=== PATIENT | female | born 1960 | race Caucasian/White ===

== ENCOUNTER → 2016-09-21 | Outpatient (CLI) | payer OTHER ==
--- NOTE | 2016-09-21 13:15 | US ---
EXAMINATION TYPE: US venous doppler duplex LE RT DATE OF EXAM: 09/21/2016 12:47 PM COMPARISON: NONE CLINICAL HISTORY: Bilateral lower leg swelling > 1 year; bilateral lower leg varicose veins; prior PE per patient HX ~ 9 years ago. SIDE PERFORMED: bilateral VESSELS IMAGED: Common Femoral Vein Deep Femoral Vein Greater Saphenous Vein * Femoral Vein Popliteal Vein Small Saphenous Vein * Proximal Calf Veins (* superficial vessels) Grayscale, color Doppler, spectral Doppler imaging performed of the deep veins of the lower extremiti es. There is normal compressibility, no abnormal luminal echoes, there is normal color flow Right Leg: Negative for DVT Left Leg: Negative for DVT IMPRESSION: No evident deep venous thrombosis
== END ==
LOC: RADUSWWP 11:59
PROVIDERS: ATTEND Family Medicine
DX: R22.43 Localized swelling, mass and lump, lower limb, bilateral (principal)
CPT/HCPCS: 93965; 93970

== ENCOUNTER → 2016-12-28 | Outpatient (CLI) | payer OTHER ==
--- NOTE | 2016-12-28 12:50 | MM ---
Reason for exam: screening (asymptomatic). Last mammogram was performed 2 years and 9 months ago. History: Patient is postmenopausal. Family history of premenopausal breast cancer in maternal grandmother at age 45. Cancelled Right US Needle Biopsy of the right breast, March 13, 2007. Took hormonal contraceptives for 16 years 7 months beginning at age 16. Physical Findings: A clinical breast exam by your physician is recommended on an annual basis and results should be correlated with mammographic findings. MG Screening Mammo w CAD Bilateral CC and MLO view(s) were taken. Prior study comparison: April 02, 2014, bilateral MG screening mammo w CAD. February 18, 2013, bilateral digital screening mammo w/CAD. There are scattered fibroglandular densities. Finding: There are typically benign round calcifications in both breasts. There is a chronic nodularity in the left breast. There is no discrete abnormality. ASSESSMENT: Benign, BI-RAD 2 RECOMMENDATION: Routine screening mammogram of both breasts in 1 year.
== END | disposition home or self-care (01) ==
LOC: RADMAMWWP 08:43
PROVIDERS: ATTEND Family Medicine
DX: Z12.31 Encounter for screening mammogram for malignant neoplasm of breast (principal)

== ENCOUNTER → 2019-08-16 | Outpatient (CLI) | payer OTHER ==
--- NOTE | 2019-08-19 11:37 | MM ---
Reason for exam: screening (asymptomatic). Last mammogram was performed 2 years and 8 months ago. History: Patient is postmenopausal. Family history of premenopausal breast cancer in maternal grandmother at age 45. Cancelled Right US Needle Biopsy of the right breast, March 13, 2007. Took hormonal contraceptives for 16 years 7 months beginning at age 16. Physical Findings: A clinical breast exam by your physician is recommended on an annual basis and results should be correlated with mammographic findings. MG Screening Mammo w CAD Bilateral CC and MLO view(s) were taken. Prior study comparison: December 28, 2016, bilateral MG screening mammo w CAD. April 02, 2014, bilateral MG screening mammo w CAD. The breast tissue is heterogeneously dense. This may lower the sensitivity of mammography. Benign appearing bilateral calcifications. No suspicious abnormality. No significant changes when compared with prior studies. ASSESSMENT: Benign, BI-RAD 2 RECOMMENDATION: Routine screening mammogram of both breasts in 1 year.
== END | disposition home or self-care (01) ==
LOC: RADMAMWWP 09:53
PROVIDERS: ATTEND Family Medicine
DX: Z12.31 Encounter for screening mammogram for malignant neoplasm of breast (principal); Z80.3 Family history of malignant neoplasm of breast
CPT/HCPCS: 77067

== ENCOUNTER → 2020-11-20 | Outpatient (CLI) | payer OTHER ==
--- NOTE | 2020-11-23 11:37 | MM ---
Reason for exam: screening (asymptomatic). Last mammogram was performed 1 year and 3 months ago. History: Patient is postmenopausal. Family history of premenopausal breast cancer in maternal grandmother at age 45. Cancelled Right US Needle Biopsy of the right breast, March 13, 2007. Took hormonal contraceptives for 16 years 7 months beginning at age 16. Physical Findings: A clinical breast exam by your physician is recommended on an annual basis and results should be correlated with mammographic findings. MG Screening Mammo w CAD Bilateral CC and MLO view(s) were taken. Prior study comparison: August 16, 2019, bilateral MG screening mammo w CAD. December 28, 2016, bilateral MG screening mammo w CAD. There are scattered fibroglandular densities. There is chronic nodularity bilaterally. Area of asymmetric dentiy are unchanged. No significant changes when compared with prior studies. ASSESSMENT: Benign, BI-RAD 2 RECOMMENDATION: Routine screening mammogram of both breasts in 1 year.
== END | disposition home or self-care (01) ==
LOC: RADMAMWWP 07:47
PROVIDERS: ATTEND Family Medicine
DX: Z12.31 Encounter for screening mammogram for malignant neoplasm of breast (principal)
CPT/HCPCS: 77067

== ENCOUNTER → 2022-02-18 | Outpatient (CLI) | payer OTHER ==
--- NOTE | 2022-02-21 08:50 | MM ---
Reason for Exam: Screening (asymptomatic). Last mammogram was performed 1 year(s) and 3 month(s) ago. Patient History: Menarche at age 14. First Full-Term at age 25. Postmenopausal. Hormonal Contraceptives for 16 years, 7 months, from age 16 until age 49. 03/13/2007, Cancelled Right US Needle Biopsy on the right side. Maternal grandmother had breast cancer, age 45. Risk Values: Shahla 5 year model risk: 1.3%. NCI Lifetime model risk: 6.6%. Prior Study Comparison: 12/28/2016 Bilateral Screening Mammogram, [facility]. 08/16/2019 Bilateral Screening Mammogram, [facility]. 11/20/2020 Bilateral Screening Mammogram, [facility]. Tissue Density: The breast tissue is heterogeneously dense. This may lower the sensitivity of mammography. Findings: Analyzed By CAD. New areas of nodularity upper-outer left breast zone B/C. Benign calcifications seen bilaterally. Overall Assessment: Incomplete: need additional imaging evaluation, BI-RAD 0 Management: Diagnostic Mammogram of the left breast. A clinical breast exam by your physician is recommended on an annual basis and results should be correlated with mammographic findings. Electronically signed and approved by: Timothy Soto M.D. Radiologis
== END | disposition home or self-care (01) ==
LOC: RADMAMWWP 13:45
PROVIDERS: ATTEND Family Medicine
DX: Z12.31 Encounter for screening mammogram for malignant neoplasm of breast (principal); Z80.3 Family history of malignant neoplasm of breast; Z78.0 Asymptomatic menopausal state
CPT/HCPCS: 77067

== ENCOUNTER → 2022-03-04 | Outpatient (CLI) | payer OTHER ==
--- NOTE | 2022-03-04 10:42 | MM ---
Reason for Exam: Additional evaluation requested from abnormal screening. Last screening mammogram was performed less than 1 month ago. Patient History: Menarche at age 14. First Full-Term at age 25. Postmenopausal. Hormonal Contraceptives for 16 years, 7 months, from age 16 until age 49. 03/13/2007, Cancelled Right US Needle Biopsy on the right side. Maternal grandmother had breast cancer, age 45. Risk Values: Shahla 5 year model risk: 1.3%. NCI Lifetime model risk: 6.6%. Prior Study Comparison: 08/16/2019 Bilateral Screening Mammogram, [facility]. 11/20/2020 Bilateral Screening Mammogram, [facility]. 02/18/2022 Bilateral MG screening mammo w CAD, [facility]. Tissue Density: Left: The breast tissue is heterogeneously dense. This may lower the sensitivity of mammography. Findings: Analyzed By CAD. Chronic nodularity persists. Overall Assessment: Probably benign, BI-RAD 3 Management: Diagnostic Mammogram of the left breast in 6 months. A clinical breast exam by your physician is recommended on an annual basis and results should be correlated with mammographic findings. This exam should not preclude additional follow-up of suspicious palpable abnormalities. Results were given to the patient verbally at the time of exam. Electronically signed and approved by: Timothy Soto M.D. Radiologis
== END | disposition home or self-care (01) ==
LOC: RADMAMWWP 10:05
PROVIDERS: ATTEND Family Medicine
DX: R92.8 Other abnormal and inconclusive findings on diagnostic imaging of breast (principal); Z78.0 Asymptomatic menopausal state; Z80.3 Family history of malignant neoplasm of breast
CPT/HCPCS: 77065

== ENCOUNTER → 2022-10-11 | Outpatient (CLI) | payer OTHER ==
--- NOTE | 2022-10-11 11:22 | MM ---
Reason for Exam: Follow-up at short interval from prior study. Last screening mammogram was performed 7 month(s) ago. Patient History: Menarche at age 14. First Full-Term at age 25. Postmenopausal. Hormonal Contraceptives for 16 years, 7 months, from age 16 until age 49. 03/13/2007, Cancelled Right US Needle Biopsy on the right side. Maternal grandmother had breast cancer, age 45. Risk Values: Shahla 5 year model risk: 1.3%. NCI Lifetime model risk: 6.4%. Prior Study Comparison: 11/20/2020 Bilateral Screening Mammogram, [facility]. 02/18/2022 Bilateral MG screening mammo w CAD, [facility]. 03/04/2022 Left MG work up mamm w CAD LT, [facility]. Tissue Density: Left: The breast tissue is heterogeneously dense. This may lower the sensitivity of mammography. Findings: Analyzed By CAD. Fibroglandular tissue is stable dating back to multiple priors given differences in technique. No suspicious masses, calcifications or distortions. Overall Assessment: Benign, BI-RAD 2 Management: Screening Mammogram of both breasts in 1 year. A clinical breast exam by your physician is recommended on an annual basis and results should be correlated with mammographic findings. This exam should not preclude additional follow-up of suspicious palpable abnormalities. Results were given to the patient verbally at the time of exam. Electronically signed and approved by: Saturnino Toledo DO
== END | disposition home or self-care (01) ==
LOC: RADMAMWWP 10:53
PROVIDERS: ATTEND Family Medicine
DX: R92.8 Other abnormal and inconclusive findings on diagnostic imaging of breast (principal); Z78.0 Asymptomatic menopausal state; Z80.3 Family history of malignant neoplasm of breast; Z98.890 Other specified postprocedural states
CPT/HCPCS: 77065

== ENCOUNTER 2023-01-05 08:36 | Day surgery (SDC) | payer OTHER ==
[2023-01-02 12:25] VITALS: BMI 31.0
[~2023-01-05 08:36] MED LIST: LACTATED RINGERS 1,000 ML IV SCH
[2023-01-05] MEDS ORDERED: LACTATED RINGERS 1,000 ML IV SCH (09:07)
[2023-01-05 09:12] VITALS: RESP 16; TEMP 97.9
[2023-01-05] MEDS ORDERED: PROPOFOL 10 MG/ML 20 ML VIAL IV ONE (09:34)
--- NOTE | 2023-01-05 09:36 | P.GSHP ---
History of Present Illness H&P Date: 01/05/23 Chief Complaint: Positive colon guard test This a 62-year-old female presents today for colonoscopy. Patient had a recent positive colon guard test. She denies any significant GI complaints. Past Medical History Past Medical History: Deep Vein Thrombosis (DVT), GERD/Reflux, Osteoarthritis (OA), Pulmonary Embolus (PE), Thyroid Disorder Additional Past Medical History / Comment(s): recent sleep apnea test-no results yet., hx of DVT'S and PE's., states hospitalized 1 month ago for cellulitis in right leg- states no drainage, -continues on antibiotic., positive cologard History of Any Multi-Drug Resistant Organisms: None Reported Past Surgical History: Tonsillectomy Additional Past Surgical History / Comment(s): vein removed from leg (office procedure) Past Anesthesia/Blood Transfusion Reactions: No Reported Reaction Additional Past Anesthesia/Blood Transfusion Reaction / Comment(s): no anesthesia since tonsills removed as a child Past Psychological History: No Psychological Hx Reported Smoking Status: Current every day smoker Past Alcohol Use History: Rare Additional Past Alcohol Use History / Comment(s): smokes 1/2 ppd or less, started smoking 45 yrs ago or more. Past Drug Use History: Marijuana Additional Drug Use History / Comment(s): smokes marijuana - Past Family History Mother Family Medical History: No Reported History Medications and Allergies Home Medications Medication Instructions Recorded Confirmed Type Apixaban [Eliquis] 5 mg PO BID 01/02/23 01/02/23 History Budesonide-Formot 160-4.5 Mcg 2 puff INHALATION BID 01/02/23 01/02/23 History [Symbicort 160-4.5 Mcg Inhaler] Cephalexin [Keflex] 250 mg PO Q12HR 01/02/23 01/02/23 History Furosemide [Lasix] 40 mg PO DAILY 01/02/23 01/02/23 History Ibuprofen [Motrin] 800 mg PO Q8H 01/02/23 01/02/23 History Levothyroxine Sodium 100 mcg PO DAILY 01/02/23 01/02/23 History Magnesium Oxide [Mag-Ox] 400 mg PO DAILY 01/02/23 01/02/23 History Omeprazole 40 mg PO DAILY 01/02/23 01/02/23 History Potassium Chloride [K-Tab ER] 20 meq PO BID 01/02/23 01/02/23 History Tiotropium 18 Mcg/Puff [Spiriva] 1 puff INHALATION DAILY 01/02/23 01/02/23 History Allergies Allergy/AdvReac Type Severity Reaction Status Date / Time No Known Allergies Allergy Verified 01/05/23 09:13 Surgical - Exam Vital Signs Temp Pulse Resp BP Pulse Ox 97.9 F 92 16 179/89 98 01/05/23 09:10 01/05/23 09:10 01/05/23 09:10 01/05/23 09:10 01/05/23 09:10 - General well developed, well nourished, no distress - Eyes PERRL - ENT normal pinna - Neck no masses - Respiratory normal expansion - Cardiovascular Rhythm: regular - Abdomen Abdomen: soft, non tender Assessment and Plan Assessment: Positive colon guard test. We'll perform colonoscopy.
--- NOTE | 2023-01-05 09:50 | P.OP ---
Date of Procedure: 01/05/23 Preoperative Diagnosis: Positive colon guard test Postoperative Diagnosis: Left colon polyp Procedure(s) Performed: Colonoscopy Anesthesia: MAC Surgeon: Adiel Montaño Pathology: other (Colon polyp) Condition: stable Disposition: PACU Description of Procedure: The patient's placed on the endoscopy table left lateral position her she received IV sedation. Digital rectal exam was performed. This revealed a few external hemorrhoids. The flexible colonoscope was then placed the patient's anus and passed throughout the entire colon. The ileocecal valve was visualized. The cecum, ascending and transverse colon appeared normal. In the left colon there was a small sessile polyp seen was removed with the cold forcep. Scope was then withdrawn the remainder the descending colon and sigmoid colon appeared normal. Scope was brought back the rectum and this appeared normal. Scope withdrawn for patient.
[2023-01-05 09:52] VITALS: PULSE 89
[2023-01-05 10:56] VITALS: BP 160/90
--- NOTE | 2023-01-05 13:53 | FL ---
EXAMINATION TYPE: FL guided pain mgmt statistic DATE OF EXAM: 01/05/2023 FLUOROSCOPY Fluoroscopy time of 1 seconds was used during lumbar epidural steroid injection. 1 image/s document/ s the procedure. DAP .[id number].
== END 2023-01-05 10:51 | disposition home or self-care (01) ==
LOC: ORWHC2ENDO 08:36
PROVIDERS: ATTEND Surgery
DX: D12.4 Benign neoplasm of descending colon (principal); K64.8 Other hemorrhoids; K21.9 Gastro-esophageal reflux disease without esophagitis; M19.90 Unspecified osteoarthritis, unspecified site; E07.9 Disorder of thyroid, unspecified; F17.210 Nicotine dependence, cigarettes, uncomplicated; F12.90 Cannabis use, unspecified, uncomplicated; Z79.01 Long term (current) use of anticoagulants; Z79.1 Long term (current) use of non-steroidal anti-inflammatories (NSAID); Z79.899 Other long term (current) drug therapy; Z79.890 Hormone replacement therapy
CPT/HCPCS: 88305; 45380; J2704

== ENCOUNTER → 2023-12-20 | Outpatient (CLI) | payer OTHER ==
--- NOTE | 2023-12-20 17:39 | CTL ---
EXAMINATION TYPE: CT Low Dose Lung DATE OF EXAM ORDERED: 12/20/2023 HISTORY: Tobacco use. Lung cancer screening CT DLP: 86.[address] CTDI: 2.4 mGy Automated exposure control for dose reduction was used. SCREENING VISIT: Initial COMPARISON: CT chest 04/02/2014 TECHNIQUE: Low dose computed tomography scan was performed through the chest at 1 mm thick sections a nd reconstructed images in the coronal plane at [address] DIAGNOSTIC QUALITY: Satisfactory FINDINGS: LUNG NODULES: None. LUNGS: COPD: Severity: None Fibrosis: Severity: None Lymph nodes: None Other findings: None RIGHT PLEURAL SPACE: Effusion: None Calcification: None Thickening: None Pneumothorax: None LEFT PLEURAL SPACE: Effusion: None Calcification: None Thickening: None Pneumothorax: None HEART: Heart Size: Normal Coronary calcification: Mild Pericardial effusion: None OTHER FINDINGS: Upper abdomen: Normal Bony thorax: No Supraclavicular region: Normal Other: Ascending thoracic aorta at the level the main pulmonary artery measures 3.7 cm. The main pul monary artery at the bifurcation measures 3.2 cm. IMPRESSION: No suspicious changes to suggest primary or metastatic neoplasm FOLLOW UP CT CHEST RECOMMENDATION: Follow-up low-dose CT chest one year CT LUNG RAD: Lung-Rad 2 Benign Appearance or Behavior
== END | disposition home or self-care (01) ==
LOC: RADCTMAIN 12:16
PROVIDERS: ATTEND Family Medicine
DX: Z12.2 Encounter for screening for malignant neoplasm of respiratory organs (principal); F17.210 Nicotine dependence, cigarettes, uncomplicated
CPT/HCPCS: 71271

== ENCOUNTER → 2024-07-31 | Outpatient (CLI) | payer OTHER ==
--- NOTE | 2024-08-01 14:48 | MM ---
Reason for Exam: Screening (asymptomatic). Last mammogram was performed 2 year(s) and 5 month(s) ago. Patient History: Menarche at age 14. First Full-Term at age 25. Postmenopausal. Hormonal Contraceptives for 16 years, 7 months, from age 16 until age 49. 03/13/2007, Cancelled Right US Needle Biopsy on the right side. Maternal grandmother had breast cancer, age 45. Risk Values: Shahla 5 year model risk: 1.4%. NCI Lifetime model risk: 6.0%. Prior Study Comparison: 02/18/2022 Bilateral MG screening mammo w CAD, [facility]. 03/04/2022 Left MG work up mamm w CAD LT, [facility]. 10/11/2022 Left MG diagnostic mammo LT w CAD, [facility]. Tissue Density: The breasts are heterogeneously dense, which may obscure small masses. Findings: Analyzed By CAD. There is no suspicious group of microcalcifications or new suspicious mass in either breast. Overall Assessment: Benign, BI-RAD 2 Management: Screening Mammogram of both breasts in 1 year. . Patient should continue monthly self-breast exams. A clinical breast exam by your physician is recommended on an annual basis. This exam should not preclude additional follow-up of suspicious palpable abnormalities. Note on Shahla scores and lifetime risk: 1. A Shahla score greater than 3% is considered moderate risk. If this is the case, consider specialist referral to assess eligibility for a risk reducing agent. 2. If overall lifetime risk for the development of breast cancer is 20% or higher, the patient may qualify for future screening with alternating mammogram and breast MRI. [facility], , 08/01/2024 2:44 PM. Electronically signed and approved by: Timothy Soto M.D. Radiologis
== END | disposition home or self-care (01) ==
LOC: RADMAMWWP 15:53
PROVIDERS: ATTEND Family Medicine
DX: Z12.31 Encounter for screening mammogram for malignant neoplasm of breast (principal); Z80.3 Family history of malignant neoplasm of breast; Z78.0 Asymptomatic menopausal state; R92.333 Mammographic heterogeneous density, bilateral breasts
CPT/HCPCS: 77067

== ENCOUNTER → 2025-01-21 | Outpatient (CLI) | payer OTHER ==
--- NOTE | 2025-01-21 17:53 | CTL ---
EXAMINATION TYPE: CT Low Dose Lung DATE OF EXAM ORDERED: 01/21/2025 COMPARISON: CT Low Dose Lung 12/20/2023 CLINICAL INDICATION: Female, 64 years old with history of Z12.2 SCREENING LUNG CA F17.210 CURRENT SMO KER; [facility], PT SMOKES 1/2 PK TO FULL PK/DAY, HX OF HTN AND BLOOD CLOT IN LUNG- COULD NOT RECALL WHICH S DANIELE, Lung cancer screening, History of Smoking/tobacco use. TECHNIQUE: Low dose computed tomography scan was performed through the chest at 1 mm thick sections a nd reconstructed images in multiple planes at 1 mm and [address] DLP: [address] CTDI: 2.79 mGy Automated exposure control for dose reduction was used. CT DIAGNOSTIC QUALITY: Satisfactory FINDINGS: Nodules: No clinically significant pulmonary nodule. LUNGS: COPD: Severity: None Fibrosis: Severity: None Lymph nodes: None Other findings: Minimal linear scarring within the right middle lobe. RIGHT PLEURAL SPACE: Effusion: None Calcification: None Thickening: None Pneumothorax: None LEFT PLEURAL SPACE: Effusion: None Calcification: None Thickening: None Pneumothorax: None HEART: Heart Size: Mildly Enlarged Coronary Calcification: Mild Pericardial Effusion: None OTHER FINDINGS: Upper abdomen: None Bony thorax: Mild multilevel degenerative disc disease. Grade 1 retrolisthesis of L1 on L2. Supraclavicular region: None Other: None IMPRESSION: No clinically significant pulmonary nodule. CT LUNG RAD AND CT CHEST RECOMMENDATION: Lung-Rad 1 Negative: Continue annual screening with LDCT in 12 months. S Modifier (other clinically significant findings): None [facility], , 01/21/2025 5:50 PM
== END | disposition home or self-care (01) ==
LOC: RADCTMAIN 16:29
PROVIDERS: ATTEND Family Medicine
DX: Z12.2 Encounter for screening for malignant neoplasm of respiratory organs (principal); F17.210 Nicotine dependence, cigarettes, uncomplicated
CPT/HCPCS: 71271